=== PATIENT | male | born 1985 | race Caucasian/White ===

== ENCOUNTER 2019-05-08 20:49 | Emergency (ER) | payer OTHER ==
[~2019-05-08] VITALS: Ht 182.9 cm; Wt 104.3 kg
[~2019-05-08 20:49] MED LIST: OMEP40CA12 PO; SUCR1SU PO
== END 2019-05-08 22:20 | disposition home or self-care (01) ==
LOC: ER 20:49
DX: S61.012A Laceration without foreign body of left thumb without damage to nail, initial encounter (principal); W25.XXXA Contact with sharp glass, initial encounter; Z88.0 Allergy status to penicillin; Z79.899 Other long term (current) drug therapy
CPT/HCPCS: 12001; 99282-25

== ENCOUNTER → 2021-09-25 | Outpatient (CLI) | payer OTHER | END | disposition home or self-care (01) | LOC: LAB 19:58 → LAB SHORT 19:58 | DX: J02.9 Acute pharyngitis, unspecified (principal) | CPT/HCPCS: 87081 ==

== ENCOUNTER → 2023-03-23 | Outpatient (CLI) | payer SELFPAY ==
[2023-03-23 17:14] LABS: BASOPHILS ABSOLUTE AUTO 0.09 K/mm3 (0.00-0.23); BASOPHILS PERCENT AUTO 1 % (0-2); EOSINOPHILS ABSOLUTE AUTO 0.36 K/mm3 (0.00-0.68); EOSINOPHILS PERCENT AUTO 5 % (0-6); Hematocrit 47.2 % (37.0-53.0); Hemoglobin 16.3 g/dL (13.5-17.5); IMMATURE GRAN ABSOLUTE AUTO 0.03 K/mm3 (0.00-0.10); IMMATURE GRAN PERCENT AUTO 0 % (0-1); LYMPHOCYTES ABSOLUTE AUTO 2.74 K/mm3 (0.84-5.20); LYMPHOCYTES PERCENT AUTO 36 % (21-46); MONOCYTES ABSOLUTE AUTO 0.57 K/mm3 (0.16-1.47); MONOCYTES PERCENT AUTO 8 % (4-13); Mean Corpuscular HGB 28.8 pg (26.0-34.0); Mean Corpuscular HGB Conc 34.5 g/dL (31.5-36.5); Mean Corpuscular Volume 83 fL (80-100); NEUTROPHILS ABSOLUTE AUTO 3.77 K/mm3 (1.96-9.15); NEUTROPHILS PERCENT AUTO 50 % (41-73); Platelet Count 348 K/mm3 (150-400); RDW Coefficient Variation 12.1 % (11.7-14.2); RDW Standard Deviation 36.8 fL (35.1-46.3); Red Blood Cell Count 5.66 M/mm3 (4.30-5.90); White Blood Cell Count 7.56 K/mm3 (4.00-11.30)
[2023-03-23 17:34] LABS: Free Thyroxine 1.02 ng/dL (0.70-1.60)
[2023-03-23 17:45] LABS: Alanine Aminotransfer (ALT/SGP 41 U/L (12-78); Albumin, Blood 4.1 g/dL (3.4-5.0); Albumin/Globulin Ratio 1.1 (0.8-1.8); Alk Phos 78 U/L (50-136); Anion Gap 5 mmol/L (6-16); Aspartate Aminotrans (AST/SGOT 20 U/L (12-37); Bilirubin, Total 0.4 mg/dL (0.1-1.0); Blood Urea Nitrogen 10 mg/dL (8-24); Bun/Creatinine Ratio 7.9 (12.0-20.0); CHOL/HDL RATIO 3.6; CO2, Blood 29 mmol/L (21-32); Chloride, Blood 106 mmol/L (98-108); Cholesterol 185 mg/dL (50-200); Creatinine, Blood 1.26 mg/dL (0.60-1.20); Globulin, Blood 3.9 g/dL (2.2-4.0); Glomerular Filtration Rate 76 (60-); Glucose, Blood 103 mg/dL (70-99); HDL Cholesterol 52 mg/dL (>39); LDL/HDL RATIO 1.6; Low Density Lipoprotein Chol 84 mg/dL (0-110); Potassium, Blood 3.9 mmol/L (3.5-5.5); Sodium, Blood 140 mmol/L (136-145); Triglycerides 244 mg/dL (30-140); Very Low Density Lipoprot Chol 48 mg/dL (6-28)
== END ==
LOC: LAB SHORT 16:14 → LAB 16:14
PROVIDERS: Family Medicine
DX: Z00.00 Encounter for general adult medical examination without abnormal findings (principal); R07.89 Other chest pain
CPT/HCPCS: 80053; 80061; 84439; 84443; 85025

== ENCOUNTER 2024-04-03 11:56 | Day surgery (SDC) | payer OTHER ==
[~2024-04-03] VITALS: Ht 182.9 cm; Wt 108.6 kg
[~2024-04-03 11:56] MED LIST changes: +Lactated Ringer's 1,000 ML IV ONE; +propofoL 50 ML IV ONE
[2024-04-03] MEDS ORDERED: EPIPEN0.3 MG/0.3 IM (12:06)
[2024-04-03] MEDS ORDERED: Lactated Ringer's 1,000 ML IV ONE (12:43)
[2024-04-03 13:58] VITALS: BP 117/90
== END 2024-04-03 13:44 | disposition home or self-care (01) ==
LOC: ORSCSDS 11:56
PROVIDERS: Specialist
PROC: 0DB58ZX Excision of Esophagus, Via Natural or Artificial Opening Endoscopic, Diagnostic (ICD-10-PCS; principal; 2024-04-03 13:15)
DX: R13.10 Dysphagia, unspecified (principal); K21.00 Gastro-esophageal reflux disease with esophagitis, without bleeding; K44.9 Diaphragmatic hernia without obstruction or gangrene; Z79.899 Other long term (current) drug therapy
CPT/HCPCS: 88305; C1726; J2704; J7120

== ENCOUNTER 2024-08-28 07:15 | Day surgery (SDC) | payer OTHER ==
[~2024-08-28] VITALS: Ht 182.9 cm; Wt 111.1 kg
[~2024-08-28 07:15] MED LIST changes: +EPIPEN0.3 MG/0.3 IM; -Lactated Ringer's 1,000 ML IV ONE; -propofoL 50 ML IV ONE
[2024-08-28] MEDS ORDERED: propofoL 50 ML IV ONE (07:21)
[2024-08-28] MEDS ORDERED: Lactated Ringer's 1,000 ML IV ONE ×2 (07:21→08:01)
[2024-08-28] MEDS ORDERED: FLUTICASONE PRO12 G1 (07:44)
--- NOTE | 2024-08-28 08:53 | NUR ---
08/28/24 0853 Francisca Rock PT UPDATED ON DELAY IN START TIME OF HIS PROCEDURE DUE TO PREVIOUS CASE RUNNING LONGER THAN ANTISIPATED. BED IN LOW, LOCKED POSITION, CALL LIGHT IN REACH.
[2024-08-28 10:29] VITALS: BP 148/91
== END 2024-08-28 10:07 | disposition home or self-care (01) ==
LOC: ORSCSDS 07:15
PROVIDERS: Internal Medicine Gastroenterology
PROC: 0D758ZZ Dilation of Esophagus, Via Natural or Artificial Opening Endoscopic (ICD-10-PCS; principal; 2024-08-28 08:45)
PROC: 0DB58ZX Excision of Esophagus, Via Natural or Artificial Opening Endoscopic, Diagnostic (ICD-10-PCS; principal; 2024-08-28 08:45)
DX: R13.10 Dysphagia, unspecified (principal); K21.00 Gastro-esophageal reflux disease with esophagitis, without bleeding; K22.10 Ulcer of esophagus without bleeding; K22.2 Esophageal obstruction; K44.9 Diaphragmatic hernia without obstruction or gangrene; Z79.899 Other long term (current) drug therapy
CPT/HCPCS: 88305; 88312; C1726; J2704; J7120